=== PATIENT | female | born 1995 | race Caucasian/White ===

== ENCOUNTER 2019-10-26 18:30 | Emergency (ER) | payer BC ==
--- NOTE | 2019-10-26 19:09 | EDM.PDOC ---
ED HPI GENERAL MEDICAL PROBLEM - General Chief Complaint: Genitourinary Problem Stated Complaint: burining with urination Time Seen by Provider: 10/26/19 18:52 Source of Information: Reports: Patient History Limitations: Reports: No Limitations - History of Present Illness INITIAL COMMENTS - FREE TEXT/NARRATIVE: This patient is a 24 year old female that presents to the ER. Patient reports that since Sunday she has been having migraines, nausea, fever, abd pain, left flank pain, vaginal burning, dysuria, chills, sore throat. She reports that she is sexually active, no protected sex Sunday. Also, oral sex. Onset Date: 10/22/19 Duration: Day(s): (4) Severity: Moderate Improves with: Reports: None Worsens with: Reports: None Associated Symptoms: Reports: Fever/Chills, Headaches, Loss of Appetite, Malaise , Nausea/Vomiting. Denies: Confusion, Cough, cough w sputum, Diaphoresis, Rash , Seizure, Shortness of Breath, Syncope, Weakness Abdomen Pain Score (Numeric/FACES): 7 - Related Data Allergies Allergy/AdvReac Type Severity Reaction Status Date / Time No Known Allergies Allergy Verified 10/26/19 18:37 Home Meds: Home Meds Nitrofurantoin Monohyd/M-Cryst [Macrobid 100 mg Capsule] 100 mg PO BID 7 Days # 14 capsule 10/26/19 [Rx] Phenazopyridine [Pyridium] 100 mg PO TID PRN #6 tab 10/26/19 [Rx] lisinopriL [Lisinopril] 10 mg PO DAILY 10/26/19 [History] Past Medical History Cardiovascular History: Reports: Hypertension Neurological History: Reports: Migraines Social & Family History - Family History Family Medical History: Noncontributory - Tobacco Use Smoking Status *Q: Never Smoker - Caffeine Use Caffeine Use: Reports: Coffee - Recreational Drug Use Recreational Drug Use: No ED ROS GENERAL - Review of Systems Review Of Systems: See Below Constitutional: Reports: Chills, Malaise, Decreased Appetite HEENT: Reports: Throat Pain Respiratory: Reports: No Symptoms Cardiovascular: Reports: No Symptoms Endocrine: Reports: No Symptoms GI/Abdominal: Reports: Abdominal Pain, Nausea. Denies: Diarrhea, Vomiting : Reports: Dysuria Musculoskeletal: Reports: Back Pain Skin: Reports: No Symptoms Neurological: Reports: Confusion, Headache. Denies: Seizure, Syncope, Weakness Psychiatric: Reports: No Symptoms Hematologic/Lymphatic: Reports: No Symptoms Immunologic: Reports: No Symptoms ED EXAM, RENAL/ - Physical Exam Exam: See Below Exam Limited By: No Limitations General Appearance: Alert, WD/WN, No Apparent Distress Eye Exam: Bilateral Eye: Normal Inspection, PERRL Ears: Normal External Exam, Normal Canal, Hearing Grossly Normal, Normal TMs Nose: Normal Inspection, Normal Mucosa, No Blood Throat/Mouth: Normal Lips, Normal Teeth, Normal Gums, Normal Voice, No Airway Compromise, Other (scant bilateral oropharynx exudate. ) Head: Atraumatic, Normocephalic Neck: Normal Inspection, Supple, Non-Tender, Full Range of Motion Respiratory/Chest: No Respiratory Distress, Lungs Clear, Normal Breath Sounds, No Accessory Muscle Use Cardiovascular: Normal Peripheral Pulses, No Edema, No Gallop, No JVD, No Murmur , No Rub, Tachycardia (110 on exam) GI/Abdominal: Normal Bowel Sounds, Soft, No Organomegaly, No Distention, No Abnormal Bruit, No Mass, Pelvis Stable, Tender (LLQ, LUQ, ) Back Exam: Normal Inspection, Full Range of Motion, CVA Tenderness (L). No: CVA Tenderness (R) Extremities: Normal Inspection, Normal Range of Motion, Non-Tender, No Pedal Edema, Normal Capillary Refill Neurological: Alert, Oriented, Normal Cognition, Normal Gait Psychiatric: Anxious Skin Exam: Warm, Dry, Intact, Normal Color, No Rash Lymphatic: No Adenopathy Course - Vital Signs Last Recorded V/S: Last Vital Signs Temp 99.8 F 10/26/19 19:28 Pulse 115 H 10/26/19 18:31 Resp 18 10/26/19 18:31 BP 128/80 10/26/19 18:31 Pulse Ox 96 10/26/19 18:31 - Orders/Labs/Meds Orders: Active Orders 24 hr Category Date Time Status CHLAMYDIA AND GONORRHEA BY TMA Stat Lab 10/26/19 18:43 Received CULTURE BLOOD [BC] Stat Lab 10/26/19 19:15 Received CULTURE BLOOD [BC] Stat Lab 10/26/19 19:25 Received CULTURE URINE [RM] Stat Lab 10/26/19 18:43 Received Blood Culture x2 Reflex Set [OM.PC] Stat Oth 10/26/19 18:59 Ordered Labs: Laboratory Tests 10/26/19 10/26/19 10/26/19 Range/Units 18:43 18:50 18:58 WBC 9.6 (5.0-10.0) 10^3/uL RBC 5.09 (4.00-5.50) 10^6/uL Hgb 15.1 (12.0-16.0) g/dL Hct 44.1 (37.0-47.0) % MCV 86.6 (82.0-94.0) fL MCH 29.7 (27.0-32.0) pg MCHC 34.2 (33.0-38.0) g/dL RDW Coeff of Jeb 13.1 (11.0-15.0) % Plt Count 202 (150-400) 10^3/uL Neut % (Auto) 78.1 (35-85) % Lymph % (Auto) 9.6 L (10-55) % Bonner % (Auto) 11.5 (0-16) % Eos % (Auto) 0.5 (0-5) % Baso % (Auto) 0.3 (0-3) % Neut # (Auto) 7.52 H (1.80-7.00) 10^3/uL Lymph # (Auto) 0.92 L (1.00-4.80) 10^3/uL Bonner # (Auto) 1.11 H (0.00-0.80) 10^3/uL Eos # (Auto) 0.05 (0.00-0.45) 10^3/uL Baso # (Auto) 0.03 10^3/uL Sodium (136-145) mEq/L Potassium (3.5-5.0) mEq/L Chloride (98-106) mEq/L Carbon Dioxide (21-32) mmol/L BUN (7-18) mg/dL Creatinine (0.6-1.0) mg/dL Est Cr Clr Drug Dosing mL/min Estimated GFR (MDRD) (>=60) mL/min Glucose (75-99) mg/dL Lactic Acid (0.4-2.0) mmol/L Calcium (8.4-10.1) mg/dL Total Bilirubin (0.0-1.0) mg/dL AST (15-37) U/L ALT (12-78) U/L Alkaline Phosphatase (46-116) U/L Total Protein (6.4-8.2) g/dL Albumin (3.4-5.0) g/dL Amylase (25-115) U/L Lipase (73-393) U/L Urine Color Yellow (YELLOW) Urine Appearance Cloudy (CLEAR) Urine pH 6.0 (4.5-8.0) Ur Specific [place] 1.020 (1.003-1.020) Urine Protein Trace H (NEGATIVE) mg/dL Urine Glucose (UA) Negative (NEGATIVE) mg/dL Urine Ketones Negative (NEGATIVE) mg/dL Urine Occult Blood Moderate H (NEGATIVE) Urine Nitrite Negative (NEGATIVE) Urine Bilirubin Negative (NEGATIVE) Urine Urobilinogen 1.0 (0.2-1.0) EU/dL Ur Leukocyte Esterase Moderate H (NEGATIVE) Urine RBC 20-30 H (0-5) /HPF Urine WBC >100 H (0-5) /HPF Urine WBC Clumps Few H (NOT SEEN) /HPF Ur Squamous Epith Cells Few H (NOT SEEN) /HPF Urine Bacteria Moderate H (NOT SEEN) /HPF Urinalysis Comment Urine HCG, Qual Negative 10/26/19 10/26/19 Range/Units 19:15 19:25 WBC (5.0-10.0) 10^3/uL RBC (4.00-5.50) 10^6/uL Hgb (12.0-16.0) g/dL Hct (37.0-47.0) % MCV (82.0-94.0) fL MCH (27.0-32.0) pg MCHC (33.0-38.0) g/dL RDW Coeff of Jeb (11.0-15.0) % Plt Count (150-400) 10^3/uL Neut % (Auto) (35-85) % Lymph % (Auto) (10-55) % Bonner % (Auto) (0-16) % Eos % (Auto) (0-5) % Baso % (Auto) (0-3) % Neut # (Auto) (1.80-7.00) 10^3/uL Lymph # (Auto) (1.00-4.80) 10^3/uL Bonner # (Auto) (0.00-0.80) 10^3/uL Eos # (Auto) (0.00-0.45) 10^3/uL Baso # (Auto) 10^3/uL Sodium 140 (136-145) mEq/L Potassium 3.7 (3.5-5.0) mEq/L Chloride 103 (98-106) mEq/L Carbon Dioxide 26 (21-32) mmol/L BUN 11 (7-18) mg/dL Creatinine 1.0 (0.6-1.0) mg/dL Est Cr Clr Drug Dosing 81.91 mL/min Estimated GFR (MDRD) > 60 (>=60) mL/min Glucose 115 H (75-99) mg/dL Lactic Acid 1.1 (0.4-2.0) mmol/L Calcium 9.0 (8.4-10.1) mg/dL Total Bilirubin 0.6 (0.0-1.0) mg/dL AST 13 L (15-37) U/L ALT 20 (12-78) U/L Alkaline Phosphatase 81 (46-116) U/L Total Protein 7.6 (6.4-8.2) g/dL Albumin 3.6 (3.4-5.0) g/dL Amylase 25 (25-115) U/L Lipase 86 (73-393) U/L Urine Color (YELLOW) Urine Appearance (CLEAR) Urine pH (4.5-8.0) Ur Specific [place] (1.003-1.020) Urine Protein (NEGATIVE) mg/dL Urine Glucose (UA) (NEGATIVE) mg/dL Urine Ketones (NEGATIVE) mg/dL Urine Occult Blood (NEGATIVE) Urine Nitrite (NEGATIVE) Urine Bilirubin (NEGATIVE) Urine Urobilinogen (0.2-1.0) EU/dL Ur Leukocyte Esterase (NEGATIVE) Urine RBC (0-5) /HPF Urine WBC (0-5) /HPF Urine WBC Clumps (NOT SEEN) /HPF Ur Squamous Epith Cells (NOT SEEN) /HPF Urine Bacteria (NOT SEEN) /HPF Urinalysis Comment Urine HCG, Qual Meds: Medications Discontinued Medications Generic Name Dose Route Start Last Admin Trade Name Freq PRN Reason Stop Dose Admin Ceftriaxone Sodium 1 gm 10/26/19 20:09 10/26/19 20:17 Rocephin IVPUSH 10/26/19 20:10 1 gm ONETIME ONE Administration Sodium Chloride 1,000 mls @ 1,000 mls/hr 10/26/19 19:13 10/26/19 19:29 Normal Saline IV 10/26/19 20:12 1,000 mls/hr .BOLUS ONE Administration Ibuprofen 800 mg 10/26/19 19:17 10/26/19 19:28 Motrin PO 10/26/19 19:18 800 mg ONETIME ONE Administration - Re-Assessments/Exams Free Text/Narrative Re-Assessment/Exam: 10/26/19 20:00 Discussed with patient performing a pelvic exam. Discussed risk vs benefits. Patient has an appointment with her PCP Sunday. Patient at this time wants to hold on pelvic exam. Will treat her UTI. Will discharge. Stable. Departure - Departure Time of Disposition: 21:29 Disposition: Home, Self-Care 01 Condition: Fair Clinical Impression: UTI, Urinary tract infectious disease - Discharge Information *PRESCRIPTION DRUG MONITORING PROGRAM REVIEWED*: Not Applicable *COPY OF PRESCRIPTION DRUG MONITORING REPORT IN PATIENT ADAM: Not Applicable Prescriptions: Nitrofurantoin Monohyd/M-Cryst [Macrobid 100 mg Capsule] 100 mg PO BID 7 Days # 14 capsule Phenazopyridine [Pyridium] 100 mg PO TID PRN #6 tab PRN Reason: Dysuria Instructions: Antibiotic Medicine, Adult, Urinary Tract Infection, Adult, Easy- to-Read Referrals: Riddhi Whiteside PA [Primary Care Provider] - Forms: ED Department Discharge Additional Instructions: Followup with your primary care provider on Sunday as scheduled: Also for other labs ordered in ER Return to the ER for increase in pain, fever, vomiting, worsening of condition, or any emergent concerns Increase fluids Macrobid 100mg 1 pill twice a day for 7 days #14 no refill Pyridium 100mg 1 pill three times a day for 2 days #6 no refill for burning with urination (will make urine turn orange) Tylenol or Motrin for pain or fever Wipe from front to back after urinating Urinate after sex Sepsis Event Note (ED) - Evaluation Sepsis Screening Result: Possible Sepsis Risk - Focused Exam Vital Signs: Vital Signs Temp Temp Pulse Resp BP Pulse Ox 10/26/19 19:28 99.8 F 10/26/19 18:31 99.0 F 115 H 18 128/80 96 - My Orders Last 24 Hours: My Active Orders 10/26/19 18:43 CHLAMYDIA AND GONORRHEA BY TMA Stat CULTURE URINE [RM] Stat 10/26/19 18:59 Blood Culture x2 Reflex Set [OM.PC] Stat 10/26/19 19:15 CULTURE BLOOD [BC] Stat 10/26/19 19:25 CULTURE BLOOD [BC] Stat - Assessment/Plan Last 24 Hours: My Active Orders 10/26/19 18:43 CHLAMYDIA AND GONORRHEA BY TMA Stat CULTURE URINE [RM] Stat 10/26/19 18:59 Blood Culture x2 Reflex Set [OM.PC] Stat 10/26/19 19:15 CULTURE BLOOD [BC] Stat 10/26/19 19:25 CULTURE BLOOD [BC] Stat Plan: PLEASE RN NOTE FOR PFSH
[2019-10-26] MEDS ORDERED: Sodium Chloride 0.9% 1,000 ML IV ONE (19:13)
[2019-10-26] MEDS ORDERED: Ibuprofen 200 MG Tab PO ONE (19:17)
[2019-10-26 19:32] LABS: CHLORIDE,CL 103 mEq/L (98-106); SODIUM,NA 140 mEq/L (136-145)
[2019-10-26] MEDS ORDERED: cefTRIAXone 1 GM Vial IVPUSH ONE (20:09)
== END 2019-10-26 20:55 | disposition home or self-care (01) ==
LOC: CC.ED 18:30
DX: N39.0 Urinary tract infection, site not specified (principal); I10 Essential (primary) hypertension; R11.2 Nausea with vomiting, unspecified; Z79.899 Other long term (current) drug therapy
CPT/HCPCS: 36415; 80053; 81001; 81025; 82150; 83605; 83690; 85025; 87040; 87086; 87186; 87430; 87491; 87591; 96361; 96374; 99284; A9270; J0696; J7030